=== PATIENT | female | born 1985 | race Two or more races ===

== ENCOUNTER → 2025-09-26 | Emergency (ER) | payer OTHER ==
[~2025-09-26] VITALS: Ht 200.7 cm; Wt 60.8 kg
[2025-09-26 07:18] LABS: BASO % 1.2 % (0.1-1.2); EOS # 0.28 (0.04-0.54); EOS % 3.1 % (0.7-7.0); LYMPH # 2.27 (1.18-3.74); LYMPH % 24.9 % (19.3-53.1); MEAN PLATELET VOLUME 8.90 fl (9.4-12.4); MONO # 0.67 (0.24-0.82); MONO % 7.4 % (4.7-12.5); NEUT # 5.73 (1.56-6.13); NEUT % 63.0 % (34.0-71.1); RED CELL DISTRIBUTION WIDTH 13.0 % (11.6-14.4)
[2025-09-26 08:02] LABS: ALT/SGPT 28.0 U/L (12-78); AST/SGOT 25.0 U/L (15-37); BILIRUBIN TOTAL 0.46 mg/dL (0.3-1.2); BUN CREA RATIO 18.0 (7.0-25.0); CREATININE SERUM 0.93 mg/dL (0.55-1.02); GFR 67.12; GLOBULINA 3.7 G/DL (2.4-3.5); GLUCOSE FASTING 76.0 mg/dL (65-100); OSMOLALITY SERUM 282.0 MOSM/KG (275-295)
== END | disposition left against medical advice (07) ==
LOC: ER 04:25
PROVIDERS: General Practice
DX: F41.8 Other specified anxiety disorders (principal)